=== PATIENT | male | born 1940 | race Caucasian/White ===

== ENCOUNTER 2018-11-17 21:41 | Inpatient (IN) | payer OTHER ==
[~2018-11-17] VITALS: Ht 167.6 cm; Wt 90.7 kg
[~2018-11-17 21:41] MED LIST: BACL10TA4 PO; DUTA0.5S2 PO; IBUP-2213 PO; PROSTATE MED PO; VALS320T2 PO
[2018-11-17 21:46] VITALS: BP 152/77
--- NOTE | 2018-11-17 21:53 | NUR ---
EKG PERFORMED IN TRIAGE ROOM
--- NOTE | 2018-11-17 22:07 | NUR ---
PT AMBULATED TO BED 5
--- NOTE | 2018-11-17 22:36 | NUR ---
Dr. Mcmahon evaluating patient at bedside.
[2018-11-17] MEDS ORDERED: ASPIRIN 325 MG TAB PO ONE (22:45)
--- NOTE | 2018-11-17 22:58 | NUR ---
X-Ray at bedside.
[2018-11-17 23:16] LABS: BASOPHILS % (AUTO) 0.3 % (0.0-2.0); EOSINOPHILS # (AUTO) 0.1 K/uL (0-0.4); EOSINOPHILS % (AUTO) 1.6 % (0.0-4.0); HEMATOCRIT 38.1 % (36-52); HEMOGLOBIN 12.6 g/dL (12.0-18.0); LYMPHOCYTES # (AUTO) 1.8 K/uL (2.0-11.5); LYMPHOCYTES % (AUTO) 35.3 % (20.5-51.1); MEAN CORPUSCULAR HEMOGLOBIN 29 pg (27-31); MEAN CORPUSCULAR HGB CONC 33 g/dL (33-37); MEAN CORPUSCULAR VOLUME 87.9 fL (80-94); MONOCYTES # (AUTO) 0.4 K/uL (0.8-1.0); MONOCYTES % (AUTO) 8.3 % (1.7-9.3); NEUTROPHILS # (AUTO) 2.8 K/uL (1.8-7.7); NEUTROPHILS % (AUTO) 54.5 % (42.2-75.2); PLATELET COUNT (AUTO) 158 K/uL (140-450); RED BLOOD CELL COUNT(AUTO) 4.34 MIL/uL (4.20-6.10); WHITE BLOOD COUNT (AUTO) 5.1 K/uL (4.8-10.8)
[2018-11-17 23:20] LABS: ANION GAP 7.3 (8-16); CARBON DIOXIDE 28.9 mmol/L (21-32); CHLORIDE 103 mmol/L (98-107); CREATININE 0.9 mg/dL (0.7-1.3); GLUCOSE 123 mg/dL (74-106); POTASSIUM 3.2 mmol/L (3.5-5.1); SODIUM SERUM 136 mmol/L (136-145); UREA NITROGEN, BLOOD 22 mg/dL (7-18)
[2018-11-17 23:26] LABS: ALBUMIN 3.7 g/dL (3.4-5.0); ASPARTATE AMINOTRANSFERASE 17 U/L (15-37); LIPASE 296 U/L (73-393); TOTAL BILIRUBIN 0.2 mg/dL (0.0-1.0)
[2018-11-17 23:35] LABS: CREATINE KINASE MB 0.8 ng/mL (0-3.6)
[2018-11-18] MEDS ORDERED: ACETAMINOPHEN 325 MG TAB PO PRN (00:05)
[2018-11-18] MEDS ORDERED: POTASSIUM CHLORIDE 10 MEQ TABER PO ONE (00:05)
[2018-11-18] MEDS ORDERED: ONDANSETRON 4 MG/2 ML VIAL IVP PRN (00:05)
[2018-11-18] MEDS ORDERED: HYDROcodone/APAP 7.5/325 MG 1 TAB PO PRN (00:05)
--- NOTE | 2018-11-18 00:30 | NUR ---
RECEIVED FROM ER PER DANO AWAKE AND ALERT AND ACCOMPANIED BY DAUGHTER AND . TELEMETRY MONITORING. CALL LIGHT WITH IN REACH. EXPLAINED USE OF CALL LIGHT . CARE PLANS FOR THE NIGHT DISCUSSED WITH THEM. IVF SITE TO RIGHT HAND #22. PATENT . SKIN INTACT. NO EDEMA. CTAB. TELEMETRY MONITORING. NSR 62 IN MONITOR. AFEBRILE. DX. CHEST PAIN AND R/O ACS.
--- NOTE | 2018-11-18 00:40 | NUR ---
Patient will be admitted to care of [facility]. Admited to TELE RM 106B VIA GURNEY WITH VSS. Belongings list completed. Report to TROY MEDINA.
[2018-11-18 00:43] VITALS: BP 157/74
--- NOTE | 2018-11-18 01:00 | NUR ---
PT. DAUGHTER CHINESE SPEAKING AND PT. INDIAN SPEAKING ONLY. USED Advanova VAULT KEEPER (BRICK) [phone] FOR ADMISSION.
[2018-11-18 01:16] LABS: FREE T4 (FREE THYROXINE) 1.04 ng/dL (0.76-1.46); MAGNESIUM 2.3 mg/dL (1.8-2.4); PHOSPHORUS 3.5 mg/dL (2.5-4.9); THYROID STIMULATING HORMONE 3.92 uIU/mL (0.34-3.74)
--- NOTE | 2018-11-18 01:45 | NUR ---
K-DUR 40 MEQS P.O. ORDERED BE RESIDENT MD AND WILL BE ADMINISTERED RT K LEVEL 3.2 .
[2018-11-18] MEDS: NACL 0.9% 1,000 ML IV SCH (01:56)
--- NOTE | 2018-11-18 02:09 | NUR ---
OFFERED PAIN RELIEVER FOR CHEST PAIN. "NO, NORMA " REQUESTED TO TURN OFF LIGHT . WENT TO SLEEP. TELEMETRY MONITORING.
[2018-11-18 02:36] LABS: PROTHROMBIN TIME 9.3 secs (10.8-13.4)
[2018-11-18 04:40] VITALS: BP 160/75
--- NOTE | 2018-11-18 04:44 | NUR ---
AWAKE AT THIS TIME. DENIES PAIN. BP 160/75. INFORMED RESIDENT MD. AWARE. "I WILL LOOK INTO " NO FURTHER ORDERS GIVEN AT THIS TIME. PT. WENT BACK TO SLEEP. AM PERSONAL HYGIENE RENDERED BY CNAS.
--- NOTE | 2018-11-18 06:30 | NUR ---
REPORT RECEIVED FROM NIGHT NURSE TROY. PT AWAKE A/O ABLE TO COMMUNICATE NEEDS. PT C/O CHEST PAIN, AWARE, STATES IT IS DECREASED FROM YESTERDAY. PT DENIES SOB, NUMBNESS, TINGLING, NO S/S OF ACUTE DISTRESS NOTE. PERSONAL ITEMS WITHIN REACH. CALL LIGHT AND SAFETY MEASURES, WILL CONTINUE TO MONITOR.
[2018-11-18] MEDS ORDERED: POTASSIUM CHLORIDE 10 MEQ TABER PO SCH (06:35)
--- NOTE | 2018-11-18 06:37 | NUR ---
PT. UA SPECIMEN SENT TO LAB FOR URINALYSIS. ABLE TO VERBALIZE NEEDS WELL IN MONGOLIAN. CALL LIGHT WITH IN REACH. NO SOB. DENIES PAIN.
[2018-11-18 06:58] LABS: BASOPHILS % (AUTO) 0.4 % (0.0-2.0); EOSINOPHILS # (AUTO) 0.1 K/uL (0-0.4); LYMPHOCYTES # (AUTO) 1.6 K/uL (2.0-11.5); LYMPHOCYTES % (AUTO) 30.5 % (20.5-51.1); MEAN CORPUSCULAR HEMOGLOBIN 29 pg (27-31); MEAN CORPUSCULAR HGB CONC 33 g/dL (33-37); MEAN CORPUSCULAR VOLUME 87.9 fL (80-94); MONOCYTES # (AUTO) 0.5 K/uL (0.8-1.0); MONOCYTES % (AUTO) 8.8 % (1.7-9.3); NEUTROPHILS # (AUTO) 3.1 K/uL (1.8-7.7); NEUTROPHILS % (AUTO) 58.3 % (42.2-75.2); PLATELET COUNT (AUTO) 153 K/uL (140-450); RED BLOOD CELL COUNT(AUTO) 4.44 MIL/uL (4.20-6.10); RED CELL DISTRIBUTION WIDTH 12.7 % (11.6-13.7); WHITE BLOOD COUNT (AUTO) 5.2 K/uL (4.8-10.8)
--- NOTE | 2018-11-18 07:00 | NUR ---
CHARGE NURSE CALLED RESIDENT SENIOR ORACLE DATABASE DEVELOPER MAYRA WITH ORDER TO HOLD K DUR P.O. ORDERED FOR 6 AM.
[2018-11-18 07:14] LABS: MAGNESIUM 2.1 mg/dL (1.8-2.4); PHOSPHORUS 3.1 mg/dL (2.5-4.9)
[2018-11-18 07:18] LABS: ANION GAP 12.7 (8-16); CARBON DIOXIDE 29.6 mmol/L (21-32); CHLORIDE 102 mmol/L (98-107); CREATININE 0.8 mg/dL (0.7-1.3); GLUCOSE 105 mg/dL (74-106); POTASSIUM 4.3 mmol/L (3.5-5.1); SODIUM SERUM 140 mmol/L (136-145); UREA NITROGEN, BLOOD 17 mg/dL (7-18)
[2018-11-18 08:00] VITALS: BP 160/78
--- NOTE | 2018-11-18 08:00 | NUR ---
DR GODWIN AT BEDSIDE TO ROUND ON PT. DISCUSSED CHEST PAIN AND PLAIN FOR CARDIOLOGY CONSULT. PT VERBALIZED UNDERSTANDING AND IS AGREEABLE TO PLAN. CALL LIGHT AND SAFETY MEASURES, WILL CONTINUE TO MONITOR.
--- NOTE | 2018-11-18 08:25 | NUR ---
PATIENT HAS BEEN SCREENED AND CATEGORIZED MODERATE NUTRITION RISK. PATIENT WILL BE SEEN WITHIN 3-5 DAYS OF ADMISSION. 11/20/18EDEN [address]ARDOS[address]
--- NOTE | 2018-11-18 08:55 | NUR ---
PT DAUGHTER AT BEDSIDE WITH HOME MEDS LIST PROVIDED TO DR DOWNEY.
[2018-11-18] MEDS ORDERED: PANTOPRAZOLE 40 MG TABEC PO SCH (09:00)
[2018-11-18] MEDS: DOCUSATE SODIUM 100 MG GELCAP PO SCH ×2 (09:20→21:47)
[2018-11-18] MEDS ORDERED: RANEX500 PO (10:40)
[2018-11-18] MEDS ORDERED: HYDR-3320 PO (10:40)
[2018-11-18] MEDS ORDERED: RANI150C PO (10:40)
[2018-11-18] MEDS ORDERED: SIMV20TA1 PO (10:40)
[2018-11-18] MEDS ORDERED: CARV25TA PO (10:40)
[2018-11-18] MEDS ORDERED: ISOS30TE68 PO (10:40)
--- NOTE | 2018-11-18 11:00 | NUR ---
PT ASLEEP EASILY AROUSABLE TO A/O ABLE TO COMMUNICATE NEEDS, FAMILY AT BEDSIDE. PT DENIES CHEST PAIN, DENIES SOB. NO S/S OF ACUTE DISTRESS NOTE. CALL LIGHT AND PERSONAL ITEMS WITHIN REACH. SAFETY MEASURES IN PLACE, WILL CONTINUE TO MONITOR.
[2018-11-18 12:00] VITALS: BP 152/71
--- NOTE | 2018-11-18 14:00 | NUR ---
PT AWAKE A/O, FAMILY AT BEDSIDE. PT DENIES CHEST PAIN, DENIES SOB. NO S/S OF ACUTE DISTRESS NOTE. CALL LIGHT AND PERSONAL ITEMS WITHIN REACH. SAFETY MEASURES IN PLACE, WILL CONTINUE TO MONITOR.
[2018-11-18 16:00] VITALS: BP 170/78
--- NOTE | 2018-11-18 17:00 | NUR ---
PT AWAKE A/O ABLE TO COMMUNICATE NEEDS, FAMILY AT BEDSIDE. PT DENIES CHEST PAIN, DENIES SOB. NO S/S OF ACUTE DISTRESS NOTE. CALL LIGHT AND PERSONAL ITEMS WITHIN REACH. SAFETY MEASURES IN PLACE, WILL CONTINUE TO MONITOR.
[2018-11-18] MEDS: CARVEDILOL 12.5 MG TAB PO SCH (17:20)
--- NOTE | 2018-11-18 19:00 | NUR ---
REPORT GIVEN TO NURSE CODY. PT SITTING UP IN BED FEEDING SELF DINNER. NO S/S OF ACUTE DISTRESS NOTED. CALL LIGHT AND PERSONAL ITEMS WITHIN REACH. SAFETY MEASURES IN PLACE, SEIZURE AND FALL PRECAUTIONS REMAIN IN PLACE. Addendum: 11/18/18 at 1937 by Jovanny Covarrubias RN REPORT GIVEN TO NURSE ARELLANO. PT REMAINS A/O ABLE TO COMMUNICATE NEEDS, FAMILY AT BEDSIDE. PT DENIES CHEST PAIN OR SOB. NO S/S OF ACUTE DISTRESS NOTED.CALL LIGHT AND PERSONAL ITEMS WITHIN REACH.
--- NOTE | 2018-11-18 19:15 | NUR ---
RECEIVED PT FROM CONCEPCIÓN RN PT GREEK SPEAKER AAOX4 AMBULATORY IV ON LEFT FA INFUSING WELL TKO ON TELEMETRY SR RELATIVE AT BED SIDE INITIAL ASSESSMENT DONE
[2018-11-18 20:00] VITALS: BP 146/75
--- NOTE | 2018-11-18 20:00 | NUR ---
DR SALAS IS HERE AND SEE THE PT
[2018-11-18] MEDS ORDERED: NON-FORMULARY ITEM (Ranitidine HCl (Ranitidine Hcl) 150 MG) PO SCH (21:00)
[2018-11-18] MEDS: SIMVASTATIN 20 MG TAB PO SCH (21:47)
[2018-11-18] MEDS: FAMOTIDINE 20 MG TAB PO SCH (21:47)
[2018-11-18] MEDS: RANOLAZINE 500 MG TER PO SCH (21:48)
--- NOTE | 2018-11-18 22:30 | NUR ---
PT SLEEPING WELL NOT DISTRESS NOTED ON TELMETRY SR
[2018-11-19] VITALS: BP 149/65
[2018-11-19] MEDS: NACL 0.9% 1,000 ML IV SCH (00:04)
--- NOTE | 2018-11-19 01:50 | NUR ---
PT REMAIN STABLE SLEEPING WELL NOT SIGN OF DISTRESS NOTED
[2018-11-19 04:00] VITALS: BP 156/78
--- NOTE | 2018-11-19 04:00 | NUR ---
SPONGE BATH GIVEN LINEN CHANGED PT DENIES ANY PAIN ON TELEMETRY SR
--- NOTE | 2018-11-19 06:37 | NUR ---
PT REMAIN STABLE NOT DISTRESS NOTED ON TELEMETRY SR PT WILL BE ENDORSED TO DAY SHIFT NURSE FOR CONTINUITY OF CARE
--- NOTE | 2018-11-19 07:20 | NUR ---
RECEIVED PRE REPORT FROM NUTRITION PARTNER NURSE AT BEDSIDE. PT IS AWAKE IN BED, NO S/S OF ACUTE DISTRESS NOTED. PT IS AUSTRIAN SPEAKING ONLY. PT ON ROOM AIR, SKIN INTACT. IV SITE ON THE LFA, 22 G, INFUSING NS 10 ML/HR TKO. CALL LIGHT WITHIN REACH, FALL PRECAUTIONS IN PLACE. WILL CONTINUE TO MONITOR.
[2018-11-19] MEDS ORDERED: POTASSIUM CHLORIDE 10 MEQ TABER PO SCH (07:35)
[2018-11-19 08:00] VITALS: BP 159/63
[2018-11-19 08:11] LABS: BASOPHILS % (AUTO) 0.3 % (0.0-2.0); EOSINOPHILS # (AUTO) 0.1 K/uL (0-0.4); EOSINOPHILS % (AUTO) 1.7 % (0.0-4.0); HEMATOCRIT 42.4 % (36-52); HEMOGLOBIN 14.2 g/dL (12.0-18.0); LYMPHOCYTES # (AUTO) 1.6 K/uL (2.0-11.5); LYMPHOCYTES % (AUTO) 30.2 % (20.5-51.1); MEAN CORPUSCULAR HEMOGLOBIN 30 pg (27-31); MEAN CORPUSCULAR HGB CONC 34 g/dL (33-37); MEAN CORPUSCULAR VOLUME 88.9 fL (80-94); MONOCYTES # (AUTO) 0.5 K/uL (0.8-1.0); MONOCYTES % (AUTO) 9.1 % (1.7-9.3); NEUTROPHILS # (AUTO) 3.1 K/uL (1.8-7.7); NEUTROPHILS % (AUTO) 58.7 % (42.2-75.2); PLATELET COUNT (AUTO) 162 K/uL (140-450); RED BLOOD CELL COUNT(AUTO) 4.77 MIL/uL (4.20-6.10); RED CELL DISTRIBUTION WIDTH 13.2 % (11.6-13.7); WHITE BLOOD COUNT (AUTO) 5.2 K/uL (4.8-10.8)
[2018-11-19] MEDS ORDERED: ISOSORBIDE MONONITRATE 30 MG PO SCH (09:00)
[2018-11-19] MEDS ORDERED: NON-FORMULARY ITEM (Losartan/Hydrochlorothiazide (Losartan-Hctz 100-25 mg Tab) 1 TAB) PO SCH (09:00)
[2018-11-19 09:04] LABS: CHOL/HDL RATIO 7.3 (1-4.5); MAGNESIUM 2.2 mg/dL (1.8-2.4); PHOSPHORUS 3.1 mg/dL (2.5-4.9)
[2018-11-19 09:05] LABS: ANION GAP 13.4 (8-16); CARBON DIOXIDE 27.5 mmol/L (21-32); CHLORIDE 103 mmol/L (98-107); GLUCOSE 102 mg/dL (74-106); POTASSIUM 3.9 mmol/L (3.5-5.1); SODIUM SERUM 140 mmol/L (136-145); UREA NITROGEN, BLOOD 18 mg/dL (7-18)
[2018-11-19] MEDS: RANOLAZINE 500 MG TER PO SCH ×2 (10:13→20:13)
[2018-11-19] MEDS: LOSARTAN 50 MG TAB PO SCH (10:14)
[2018-11-19] MEDS: DOCUSATE SODIUM 100 MG GELCAP PO SCH ×2 (10:14→20:12)
[2018-11-19] MEDS: ISOSORBIDE MONONITRATE 30 MG TABER PO SCH (10:14)
[2018-11-19] MEDS: FAMOTIDINE 20 MG TAB PO SCH ×2 (10:15→20:13)
[2018-11-19] MEDS: CARVEDILOL 12.5 MG TAB PO SCH ×2 (10:15→17:00)
[2018-11-19] MEDS: HYDROCHLOROTHIAZIDE 25 MG TAB PO SCH (10:15)
--- NOTE | 2018-11-19 11:25 | NUR ---
PT ACCIDENTALLY PULLED OUT HIS IV. WILL ATTEMPT TO START A NEW ONE AFTER HIS STRESS TEST.
--- NOTE | 2018-11-19 11:30 | NUR ---
PTT OFF THE FLOOR WITH CARDIO FOR STRESS TEST AT THIS TIME.
[2018-11-19 13:00] VITALS: BP 100/53
--- NOTE | 2018-11-19 13:44 | NUR ---
NEW IV INSERTED. L HAND 22 GAUGE. PATENT AND INTACT.
--- NOTE | 2018-11-19 14:00 | NUR ---
PER DR DOWNEY, PT DOES NOT NEED ANY IV FLUIDS, AND HE IS NOT GETTING ANY IV ABX. NEW IV SITE IS SALINE LOCKED.
[2018-11-19 16:00] VITALS: BP 104/50
--- NOTE | 2018-11-19 19:25 | NUR ---
PT ENDORSED TO CONGRESSIONAL DISTRICT AIDE IN STABLE CONDITION.
--- NOTE | 2018-11-19 19:26 | NUR ---
RECEIVED BEDSIDE REPORT FROM CAROL RODRIGUEZ. PT IS AAO X 4. ON ROOM AIR. RESPIRATIONS ARE EQUAL AND UNLABORED. PT DENIES ANY PAIN. FAMILY IS AT BEDSIDE. SKIN INTACT. IV ON L HAND 22G SALINE LOCK. PT IS MALTESE SPEAKING ONLY. PLAN OF CARE DISCUSSED WITH PT AND FAMILY. ALL SAFETY MEASURES IN PLACE. CALL LIGHT WITHIN REACH.
[2018-11-19 20:07] VITALS: BP 123/63
[2018-11-19] MEDS: SIMVASTATIN 20 MG TAB PO SCH (20:12)
--- NOTE | 2018-11-19 20:12 | NUR ---
VS ARE WITHIN NORMAL LIMITS. DUE MEDICATIONS GIVEN. PT TOLERATED WELL. CALL LIGHT IS WITHIN REACH. WILL CONTINUE TO MONITOR.
[2018-11-20] VITALS: BP 131/66
--- NOTE | 2018-11-20 | NUR ---
VS ARE WITHIN NORMAL LIMITS. ALL NEEDS MET AT THIS TIME. CALL LIGHT WITHIN REACH.
--- NOTE | 2018-11-20 02:10 | NUR ---
PT SLEEPING COMFORTABLY IN BED. NO S/S OF DISTRESS. CALL LIGHT WITHIN REACH.
[2018-11-20 04:00] VITALS: BP 115/67
[2018-11-20 06:34] LABS: BASOPHILS % (AUTO) 0.4 % (0.0-2.0); EOSINOPHILS # (AUTO) 0.1 K/uL (0-0.4); EOSINOPHILS % (AUTO) 1.8 % (0.0-4.0); HEMOGLOBIN 13.1 g/dL (12.0-18.0); LYMPHOCYTES # (AUTO) 1.8 K/uL (2.0-11.5); LYMPHOCYTES % (AUTO) 38.1 % (20.5-51.1); MEAN CORPUSCULAR HEMOGLOBIN 30 pg (27-31); MEAN CORPUSCULAR HGB CONC 34 g/dL (33-37); MEAN CORPUSCULAR VOLUME 88.2 fL (80-94); MONOCYTES # (AUTO) 0.4 K/uL (0.8-1.0); MONOCYTES % (AUTO) 8.6 % (1.7-9.3); NEUTROPHILS # (AUTO) 2.5 K/uL (1.8-7.7); NEUTROPHILS % (AUTO) 51.1 % (42.2-75.2); PLATELET COUNT (AUTO) 144 K/uL (140-450); RED BLOOD CELL COUNT(AUTO) 4.42 MIL/uL (4.20-6.10); RED CELL DISTRIBUTION WIDTH 13.1 % (11.6-13.7); WHITE BLOOD COUNT (AUTO) 4.8 K/uL (4.8-10.8)
[2018-11-20 07:07] LABS: ANION GAP 12.3 (8-16); CARBON DIOXIDE 27.5 mmol/L (21-32); CHLORIDE 103 mmol/L (98-107); GLUCOSE 104 mg/dL (74-106); POTASSIUM 3.8 mmol/L (3.5-5.1); SODIUM SERUM 139 mmol/L (136-145); UREA NITROGEN, BLOOD 18 mg/dL (7-18)
--- NOTE | 2018-11-20 07:15 | NUR ---
GAVE BEDSIDE REPORT TO CAROL SIERRA. PT ENDORSED IN STABLE CONDITION.
[2018-11-20 07:16] LABS: MAGNESIUM 2.1 mg/dL (1.8-2.4); PHOSPHORUS 3.5 mg/dL (2.5-4.9)
--- NOTE | 2018-11-20 07:30 | NUR ---
RECEIVED PT AAOX4. NO SOB NOTED. NO C/O PAIN AT THIS TIME. IV TO LT HAND PATENT AND INTACT. CHEST, DIMINISHED AIR ENTRY TO THE BASES, OTHERWISE CLEAR. ABDOMEN SOFT, BOWEL SOUNDS PRESENT. INSTRUCTED PT TO CALL FOR ASSISTANCE, CALL LIGHT WITHIN REACH, PT VERBALIZED UNDERSTANDING.
[2018-11-20 08:00] VITALS: BP 131/60
[2018-11-20] MEDS: RANOLAZINE 500 MG TER PO SCH (09:00)
--- NOTE | 2018-11-20 09:30 | NUR ---
PT CONSUMED ALMOST 100% ON BREAKFAST SERVED, FOOD TOLERATED WELL.
[2018-11-20] MEDS: HYDROCHLOROTHIAZIDE 25 MG TAB PO SCH (09:58)
[2018-11-20] MEDS: LOSARTAN 50 MG TAB PO SCH (09:58)
[2018-11-20] MEDS: CARVEDILOL 12.5 MG TAB PO SCH (09:59)
[2018-11-20] MEDS: ISOSORBIDE MONONITRATE 30 MG TABER PO SCH (09:59)
[2018-11-20] MEDS: DOCUSATE SODIUM 100 MG GELCAP PO SCH (09:59)
[2018-11-20] MEDS: FAMOTIDINE 20 MG TAB PO SCH (09:59)
--- NOTE | 2018-11-20 11:30 | NUR ---
PT SEEN BY DR. Lynnette SALAS AT THE BEDSIDE.
[2018-11-20 12:00] VITALS: BP 123/75
--- NOTE | 2018-11-20 12:45 | NUR ---
DISCHARGE INSTRUCTIONS GIVEN TO PT AND FAMILY ON A DOWN TIME PAPER. DAUGHTER MICHAEL AT THE BEDSIDE WHO SPEAKS LUXEMBOURGER WELL, BOTH PT AND FAMILY VERBALIZED UNDERSTANDING ON THE NEED TO FOLLOW UP WITH PCP AND SERVICE AGENT WITHIN 7 DAYS. ARM BANDS AND IV REMOVED, CANNULA TIP INTACT.
--- NOTE | 2018-11-20 13:00 | NUR ---
PT ESCORTED TO THE PARKING LOT IN STABLE CONDITION, AMBULATORY. NO SOB NOTED. NO COMPLAINTS MADE. PT IS D/C HOME WITH FAMILY.
== END 2018-11-20 13:00 | disposition home or self-care (01) | DRG 206 ==
LOC: MED 21:41 → MTU 11-18 00:09
PROVIDERS: ADMIT General Practice; ATTEND General Practice
DX: M94.0 Chondrocostal junction syndrome [Tietze] (principal); K21.9 Gastro-esophageal reflux disease without esophagitis; E87.6 Hypokalemia; E66.9 Obesity, unspecified; E78.5 Hyperlipidemia, unspecified; E03.9 Hypothyroidism, unspecified; N40.0 Benign prostatic hyperplasia without lower urinary tract symptoms; I10 Essential (primary) hypertension; Z68.32 Body mass index [BMI] 32.0-32.9, adult; Z71.3 Dietary counseling and surveillance; Z79.899 Other long term (current) drug therapy; Z98.49 Cataract extraction status, unspecified eye; Z82.79 Family history of other congenital malformations, deformations and chromosomal abnormalities; Z82.49 Family history of ischemic heart disease and other diseases of the circulatory system
CPT/HCPCS: 36415; 71045; 80048; 80053; 82150; 82550; 82553; 83036; 83690; 83735; 83880; 84100; 84439; 84443; 84484; 85025; 85610; 85730; 87081; 93005; 93017; 99285; J1644; J7030

== ENCOUNTER 2019-06-07 18:36 | Emergency (ER) | payer OTHER ==
[~2019-06-07] VITALS: Ht 165.1 cm; Wt 90.7 kg
[2019-06-07 18:36] VITALS: BP 174/89
[~2019-06-07 18:36] MED LIST changes: -BACL10TA4 PO; +CARV25TA PO; -DUTA0.5S2 PO; +HYDR-3320 PO; +ISOS30TE68 PO; -PROSTATE MED PO; +RANEX500 PO; +RANI150C PO; +SIMV20TA1 PO; -VALS320T2 PO
--- NOTE | 2019-06-07 18:39 | NUR ---
PT BIBA TO BED 07.
[2019-06-07] MEDS ORDERED: PANTOPRAZOLE 40 MG INJ VIAL IVP ONE (18:50)
[2019-06-07] MEDS ORDERED: MORPHINE SULFATE 4 MG/ML SYR IVP ONE (18:50)
[2019-06-07] MEDS ORDERED: NACL 0.9% 1,000 ML IV ONE (18:50)
--- NOTE | 2019-06-07 18:51 | NUR ---
CXR AT BEDSIDE
--- NOTE | 2019-06-07 18:59 | NUR ---
ADMITS TO BINGE DRINKING TODAY, STATES HAD ABOUT 8 BEERS TODAY FOLLOWED BY MIDSTERNAL/EPIGASTRIC PAIN CONSTANT PAIN DENIES N/V
--- NOTE | 2019-06-07 18:59 | NUR ---
3L NC 02 PLACED ON PT
[2019-06-07 19:12] LABS: BASOPHILS % (AUTO) 0.7 % (0.0-2.0); HEMATOCRIT 41.2 % (36-52); HEMOGLOBIN 13.9 g/dL (12.0-18.0); LYMPHOCYTES # (AUTO) 0.9 K/uL (2.0-11.5); LYMPHOCYTES % (AUTO) 12.8 % (20.5-51.1); MEAN CORPUSCULAR HEMOGLOBIN 30 pg (27-31); MEAN CORPUSCULAR HGB CONC 34 g/dL (33-37); MEAN CORPUSCULAR VOLUME 87.8 fL (80-94); MONOCYTES # (AUTO) 0.2 K/uL (0.8-1.0); MONOCYTES % (AUTO) 2.8 % (1.7-9.3); NEUTROPHILS # (AUTO) 5.9 K/uL (1.8-7.7); NEUTROPHILS % (AUTO) 83.7 % (42.2-75.2); PLATELET COUNT (AUTO) 170 K/uL (140-450); RED BLOOD CELL COUNT(AUTO) 4.69 MIL/uL (4.20-6.10); RED CELL DISTRIBUTION WIDTH 13.8 % (11.6-13.7)
[2019-06-07 19:29] LABS: ANION GAP 19.2 (8-16); CARBON DIOXIDE 22.4 mmol/L (21-32); CHLORIDE 103 mmol/L (98-107); CREATININE 0.9 mg/dL (0.7-1.3); GLUCOSE 112 mg/dL (74-106); POTASSIUM 3.6 mmol/L (3.5-5.1); SODIUM SERUM 141 mmol/L (136-145); UREA NITROGEN, BLOOD 18 mg/dL (7-18)
[2019-06-07 19:35] LABS: ALBUMIN 4.4 g/dL (3.4-5.0); ASPARTATE AMINOTRANSFERASE 24 U/L (15-37); LIPASE 211 U/L (73-393); TOTAL BILIRUBIN 0.2 mg/dL (0.0-1.0)
--- NOTE | 2019-06-07 19:53 | NUR ---
Dr. Mendes evaluating patient at bedside.
--- NOTE | 2019-06-07 20:05 | NUR ---
PT LAYING IN BED, FAMILY MEMBER AT BEDSIDE. VS NOTED, RR EVEN AND UNLABORED. PT REPORTS IMPROVEMENT IN PAIN RELIEF, 0/10 AT THIS TIME. ALL NEEDS MET.
[2019-06-07 20:41] VITALS: BP 141/67
--- NOTE | 2019-06-07 20:41 | NUR ---
Patient discharged with v/s stable. Written and verbal after care instructions given and explained. Patient alert, oriented and verbalized understanding of instructions. Ambulatory with steady gait. All questions addressed prior to discharge. ID band removed. Patient advised to follow up with PMD. Rx of ZOFRAN, MOTRIN given. Patient educated on indication of medication including possible reaction and side effects. Opportunity to ask questions provided and answered.
== END 2019-06-07 20:41 | disposition home or self-care (01) ==
LOC: MED 18:36
DX: R07.9 Chest pain, unspecified (principal); R11.2 Nausea with vomiting, unspecified; R10.9 Unspecified abdominal pain; I20.9 Angina pectoris, unspecified; K21.9 Gastro-esophageal reflux disease without esophagitis; I10 Essential (primary) hypertension; Z79.899 Other long term (current) drug therapy
CPT/HCPCS: 36415; 71045; 80053; 83690; 84484; 85025; 93005; 96361; 96374; 96375; 99284; C9113; J2270; J7030; Q0092

== ENCOUNTER 2021-06-04 13:51 | Emergency (ER) | payer OTHER ==
[~2021-06-04] VITALS: Ht 170.2 cm; Wt 96.2 kg
[2021-06-04 14:01] VITALS: BP 142/67
--- NOTE | 2021-06-04 14:05 | NUR ---
PT SENT TO LOBBY TO WAIT FOR AVAILABLE BED OR MSE.
[2021-06-04] MEDS ORDERED: HYDROcodone/APAP 5/325 MG 1 TAB TAB PO ONE (14:30)
[2021-06-04 14:37] LABS: BASOPHILS # (AUTO) 0.1 K/uL (0.00-0.22); BASOPHILS % (AUTO) 0.6 % (0.0-2.0); EOSINOPHILS % (AUTO) 0.2 % (0.0-4.0); HEMATOCRIT 35.9 % (36-52); HEMOGLOBIN 12.1 g/dL (12.0-18.0); LYMPHOCYTES # (AUTO) 1.4 K/uL (2.0-11.5); LYMPHOCYTES % (AUTO) 12.6 % (20.5-51.1); MEAN CORPUSCULAR HEMOGLOBIN 30 pg (27-31); MEAN CORPUSCULAR HGB CONC 34 g/dL (33-37); MEAN CORPUSCULAR VOLUME 88.2 fL (80-94); MONOCYTES # (AUTO) 1.5 K/uL (0.8-1.0); MONOCYTES % (AUTO) 13.5 % (1.7-9.3); NEUTROPHILS # (AUTO) 7.9 K/uL (1.8-7.7); NEUTROPHILS % (AUTO) 73.1 % (42.2-75.2); PLATELET COUNT (AUTO) 165 K/uL (140-450); RED BLOOD CELL COUNT(AUTO) 4.07 MIL/uL (4.20-6.10); RED CELL DISTRIBUTION WIDTH 13.3 % (11.6-13.7); WHITE BLOOD COUNT (AUTO) 10.8 K/uL (4.8-10.8)
[2021-06-04 14:37] LABS: APPEARANCE,URINE CLEAR (CLEAR); BILIRUBIN,URINE NEGATIVE (NEGATIVE); BLOOD, URINE NEGATIVE (NEGATIVE); COLOR,URINE YELLOW (YELLOW); LEUKOCYTE ESTERASE ,URINE NEGATIVE (NEGATIVE); NITRITE, URINE NEGATIVE (NEGATIVE); PH,URINE 5.5 (5.0-9.0); UGLUCOSE NEGATIVE (NEGATIVE)
[2021-06-04 14:53] LABS: ALBUMIN 3.9 g/dL (3.4-5.0); ANION GAP 11.4 (8-16); ASPARTATE AMINOTRANSFERASE 14 U/L (15-37); CARBON DIOXIDE 28.7 mmol/L (21-32); CHLORIDE 100 mmol/L (98-107); CREATININE 1.3 mg/dL (0.6-1.3); GLUCOSE 112 mg/dL (74-106); POTASSIUM 4.1 mmol/L (3.5-5.1); SODIUM SERUM 136 mmol/L (136-145); TOTAL BILIRUBIN 0.5 mg/dL (0.0-1.0); UREA NITROGEN, BLOOD 30 mg/dL (7-18)
--- NOTE | 2021-06-04 15:01 | NUR ---
PATIENT AMBULATED TO BED 04 WITH STEADY/EVEN GAIT.
--- NOTE | 2021-06-04 15:05 | NUR ---
Rich langford swab handed to CPT Pat at ER bedside.
--- NOTE | 2021-06-04 15:05 | NUR ---
80 y/o M BIB self from home with c/c L flank pain x 4 days. Patient A&Ox4, ambulatory, reports 10/10, sharp/intermittent, radiating from back to hip. Patient also reports slight constipation that triggers left flank pain. Patient states Tylenol 500mg at 10AM without relief. Denies nausea, vomiting, diarrhea, chest pain, dysuria, frequency, fever/chills. UA collected. Last BM: yesterday normal; bowel sounds normoactive x LLQ/LUQ quadrants. VSS; respirations even/unlabored. Bed locked in lowest position, side rails x 1, call light in reach. PMH: HTN, hyperlipidemia, heart disease, constipation Meds: Nifedipine, carvedilol, celecoxib, simvastatin, ASA 81, hydrochlorothiazide, ranolazine, dulateride, Tylenol, isosorbid NKA
--- NOTE | 2021-06-04 15:15 | NUR ---
Dr. Momin is evaluating patient at bedside with Saba
--- NOTE | 2021-06-04 15:38 | NUR ---
Patient reports positive relief; pain 5/10 at this time. Denies nausea. All needs met.
[2021-06-04] MEDS ORDERED: ACET-10509 PO (16:08)
[2021-06-04] MEDS ORDERED: LID5T TP (16:08)
[2021-06-04 16:30] VITALS: BP 135/60
--- NOTE | 2021-06-04 16:30 | NUR ---
Patient discharged with v/s stable. Written and verbal after care instructions given and explained. Patient alert, oriented and verbalized understanding of instructions. Ambulatory with steady gait. All questions addressed prior to discharge. ID band removed. Patient advised to follow up with PMD. Rx of Lidocaine patch and Tylenol given. Patient educated on indication of medication including possible reaction and side effects. Opportunity to ask questions provided and answered.
== END 2021-06-04 16:30 | disposition home or self-care (01) ==
LOC: MED 13:51
DX: R10.9 Unspecified abdominal pain (principal); Z20.822 Contact with and (suspected) exposure to COVID-19; R20.0 Anesthesia of skin; K21.9 Gastro-esophageal reflux disease without esophagitis; I10 Essential (primary) hypertension; Z79.899 Other long term (current) drug therapy
CPT/HCPCS: 36415; 80053; 81002; 81003; 83605; 85025; 87040; 99284

== ENCOUNTER 2022-01-08 21:50 | Inpatient (IN) | payer OTHER ==
[~2022-01-08] VITALS: Ht 165.1 cm; Wt 96.6 kg
[~2022-01-08 21:50] MED LIST changes: +ACET-10509 PO; +LID5T TP
[2022-01-08 21:57] VITALS: BP 206/85
--- NOTE | 2022-01-08 22:02 | NUR ---
PT TO BED 9
--- NOTE | 2022-01-08 22:08 | NUR ---
81 YO/M BIB SON IN LAW W C/O MIDSTERNAL CHEST PAIN 10/10 PRESSURE LIKE CONSTANT NON-RAD X1 HOUR STARTING WHILE RESTING IN BED, + SOB. PT DENIES ANY N/V/D, OR URINE PROBLEMS. PT A0X4, GCS 15, +2 RADIAL PULSES, SKIN PINK/WARM/DRY, AMBULATORY W STEADY GAIT. PT HYPERTENSIVE. PT LAYING IN BED LOCKED IN LOWEST POSITION W X2 SIDERAILS UP FOR PT SAFETY. PT GRUNTING AND COMPLAINING OF CHEST PAIN. ERMD AWARE OF PT STATUS. PT CONNECTED TO MONITOR. WILL CONTINUE TO MONITOR. PMH: HTN, HIGH CHOLESTEROL ALLERGIES: DENIES
[2022-01-08] MEDS ORDERED: ONDANSETRON 4 MG/2 ML VIAL IVP ONE (22:10)
[2022-01-08] MEDS ORDERED: ENOXAPARIN 100 MG/ML SYR SUBQ ONE (22:10)
[2022-01-08] MEDS ORDERED: NITROGLYCERIN 2% 1 GM PKT TP ONE (22:10)
[2022-01-08] MEDS ORDERED: MORPHINE SULFATE 4 MG/ML SYR IVP ONE (22:10)
[2022-01-08] MEDS ORDERED: ASPIRIN 325 MG TAB PO ONE (22:10)
--- NOTE | 2022-01-08 22:20 | NUR ---
XRAY AT BEDSIDE
[2022-01-08 22:28] LABS: BASOPHILS # (AUTO) 0.1 K/uL (0.00-0.22); BASOPHILS % (AUTO) 1.1 % (0.0-2.0); EOSINOPHILS % (AUTO) 0.9 % (0.0-4.0); HEMATOCRIT 39.6 % (36-52); HEMOGLOBIN 13.6 g/dL (12.0-18.0); LYMPHOCYTES # (AUTO) 2.7 K/uL (2.0-11.5); MEAN CORPUSCULAR HEMOGLOBIN 30 pg (27-31); MEAN CORPUSCULAR HGB CONC 35 g/dL (33-37); MEAN CORPUSCULAR VOLUME 86.4 fL (80-94); MONOCYTES # (AUTO) 0.6 K/uL (0.8-1.0); MONOCYTES % (AUTO) 10.2 % (1.7-9.3); NEUTROPHILS # (AUTO) 2.2 K/uL (1.8-7.7); NEUTROPHILS % (AUTO) 38.8 % (42.2-75.2); PLATELET COUNT (AUTO) 189 K/uL (140-450); RED BLOOD CELL COUNT(AUTO) 4.58 MIL/uL (4.20-6.10); RED CELL DISTRIBUTION WIDTH 13.9 % (11.6-13.7); WHITE BLOOD COUNT (AUTO) 5.6 K/uL (4.8-10.8)
[2022-01-08] MEDS ORDERED: hydrALAZINE 20 MG/ML VIAL IVP ONE (22:50)
[2022-01-08] MEDS ORDERED: ENALAPRILAT 2.5 MG/2 ML VIAL IVP ONE (22:50)
[2022-01-08 22:54] LABS: ANION GAP 11.7 (8-16); ASPARTATE AMINOTRANSFERASE 97 U/L (15-37); CARBON DIOXIDE 27.4 mmol/L (21-32); CHLORIDE 102 mmol/L (98-107); CREATININE 0.9 mg/dL (0.6-1.3); GLUCOSE 110 mg/dL (74-106); SODIUM SERUM 135 mmol/L (136-145); TOTAL BILIRUBIN 0.4 mg/dL (0.0-1.0); UREA NITROGEN, BLOOD 18 mg/dL (7-18)
--- NOTE | 2022-01-08 23:05 | NUR ---
PT SON IN [facility] CONTACT # [phone].
--- NOTE | 2022-01-08 23:05 | NUR ---
PT REPORTS FEELING BETTER AT THIS TIME, DENIES SOB. REPORTS CHEST PAIN IMPROVEMENT TP 01/01.
[2022-01-08 23:07] LABS: POTASSIUM 6.1 mmol/L (3.5-5.1)
--- NOTE | 2022-01-08 23:30 | NUR ---
PT BP 150/70, PER ERMD OK TO NON-ADMIN VASOTEC.
[2022-01-08] MEDS ORDERED: HYDROcodone/APAP 5/325 MG 1 TAB TAB PO PRN (23:35)
[2022-01-08] MEDS ORDERED: POTASSIUM CHLORIDE 10 MEQ TABER PO PRN (23:35)
[2022-01-08] MEDS ORDERED: HYDROmorphone 1 MG/ML AMP IVP PRN (23:35)
[2022-01-08] MEDS ORDERED: ACETAMINOPHEN 325 MG TAB PO PRN (23:35)
[2022-01-08] MEDS ORDERED: MORPHINE SULFATE 4 MG/ML SYR IVP PRN (23:35)
[2022-01-08] MEDS ORDERED: ONDANSETRON 4 MG/2 ML VIAL IVP PRN (23:35)
[2022-01-08] MEDS ORDERED: hydrALAZINE 20 MG/ML VIAL IM PRN (23:40)
--- NOTE | 2022-01-09 00:05 | NUR ---
PT APPEARS TO BE RESTING W EYES CLOSED BREATHING EVEN AND UNLABORED. WILL CONTINUE TO MONITOR.
[2022-01-09] MEDS: NACL 0.9% 1,000 ML IV SCH ×2 (00:22→12:05)
--- NOTE | 2022-01-09 00:24 | NUR ---
PT REPORTS CHEST PAIN HAS RESOLVED. NO NEW SYMPTOMS.
--- NOTE | 2022-01-09 01:12 | NUR ---
PT REPORTS HE DOES NOT KNOW THE NAMES OF THE MEDICATIONS HE TAKES AT HOME. PT UNSURE WHICH ONES IN CURRENT MED REC FILE HE TAKES.
--- NOTE | 2022-01-09 02:43 | NUR ---
NO CHANGE IN PT STATUS. PT APPEARS TO BE RESTING W EYES CLOSED BREATHING EVEN AND UNLABORED. VSS. WILL CONTINUE TO MONITOR.
--- NOTE | 2022-01-09 04:16 | NUR ---
PROVIDED PT W BLANKET. PT DENIES ANY CHEST PAIN OR OTHER SYMPTOMS. VSS.
--- NOTE | 2022-01-09 04:40 | NUR ---
PROVIDED PT SON IN LAW NAIF W A STATUS UPDATE.
--- NOTE | 2022-01-09 06:10 | NUR ---
NO CHANGE IN PT STATUS. PT APPEARS TO BE RESTING W EYES CLOSED BREATHING EVEN AND UNLABORED. VSS. WILL CONTINUE TO MONITOR.
[2022-01-09 06:28] LABS: ALBUMIN 3.6 g/dL (3.4-5.0); ANION GAP 11.6 (8-16); ASPARTATE AMINOTRANSFERASE 29 U/L (15-37); CARBON DIOXIDE 26.5 mmol/L (21-32); CHLORIDE 104 mmol/L (98-107); CREATININE 0.9 mg/dL (0.6-1.3); GLUCOSE 120 mg/dL (74-106); MAGNESIUM 2.4 mg/dL (1.8-2.4); POTASSIUM 4.1 mmol/L (3.5-5.1); SODIUM SERUM 138 mmol/L (136-145); TOTAL BILIRUBIN 0.2 mg/dL (0.0-1.0); UREA NITROGEN, BLOOD 18 mg/dL (7-18)
--- NOTE | 2022-01-09 07:11 | NUR ---
Pt report given to CAROL EDMOND. Transfer of care at this time.
--- NOTE | 2022-01-09 07:30 | NUR ---
received pt in [facility] aox4. denies pain or discomfort. nsr on monitor. iv intact and patent. nad. safety maintained.
--- NOTE | 2022-01-09 07:57 | NUR ---
PT TRANSFERRED TO [facility] [[email or web address]] FROM ED. RECEIVED BEDSIDE REPORT FROM ED NURSE. NO S/S OF DISTRESS. CALL LIGHT IN REACH. ALL SAFETY MEASURES IN PLACE
[2022-01-09] MEDS: carvediloL 6.25 MG TAB PO SCH ×2 (10:02→21:38)
[2022-01-09] MEDS: BLOOD GLUCOSE MONITORING 1 DEV DEV FS SCH ×3 (11:30→21:27)
[2022-01-09] MEDS ORDERED: DEXTROSE 50% 50 ML SYR IVP PRN (11:30)
[2022-01-09] MEDS ORDERED: INSULIN LISPRO SLIDING SCALE 100 UNITS/ML VIAL SUBQ PRN (11:30)
[2022-01-09 12:00] VITALS: BP 131/69
--- NOTE | 2022-01-09 12:00 | NUR ---
PT FAMILY CALLED, SON-IN-LAW NAIF. PT WAS ASKED IF HE WANTED STAFF TO RELEASE MEDICAL INFORMATION TO FAMILY. PT REFUSED CONSENT AND ROOM PHONE TO SPEAK WITH FAMILY. CALL LIGHT IN REACH. ALL SAFETY MEASURES IN PLACE
--- NOTE | 2022-01-09 12:52 | NUR ---
PATIENT HAS BEEN SCREENED AND CATEGORIZED MODERATE NUTRITION RISK. PATIENT WILL BE SEEN WITHIN 3-5 DAYS OF ADMISSION. JOHANNY MCQUE[address] RD
[2022-01-09 16:00] VITALS: BP 151/71
--- NOTE | 2022-01-09 16:00 | NUR ---
PT LYING ON HIS BED, BREATHING UNLABORED. DENIES PAIN. WILL CONTINUE TO MONITOR.
[2022-01-09] MEDS ORDERED: LOVENOX 1MG/KG Q12H SUBQ SCH (18:10)
--- NOTE | 2022-01-09 18:15 | NUR ---
PT SON-IN-LAW(NAIF) WAS AT BEDSIDE, RELAYED PT'S CONDITION. PT IS TABLE AT THIS TIME.
[2022-01-09] MEDS: ENOXAPARIN 100 MG/ML SYR SUBQ SCH (19:05)
--- NOTE | 2022-01-09 19:30 | NUR ---
GAVE REPORT TO EDGE STAINER NURSE, PT IS STABLE. PLAN OF CARE DISCUSSED.
--- NOTE | 2022-01-09 19:31 | NUR ---
RECEIVED ENDORSEMENT FROM CAROL STOVER FOR CONTINUITY OF CARE. PATIENT IS AWAKE AND STABLE. A&OX4 BERMUDIAN SPEAKING ONLY. VERBALLY RESPONSIVE AND ABLE TO COMMUNICATE NEEDS. DENIES PAIN. ON ROOM AIR WITH NO APPARENT S/SX OF ACUTE DISTRESS. RESPIRATIONS EVEN AND UNLABORED. PATIENT IS AMBULATORY. CONTINENT OF VOID AND URINE. SKIN IS INTACT. IV SITE IS PATENT/INTACT WITH NS INFUSING AT 80 ML/HR. PLAN OF CARE AND WHITE COMMUNICATION BOARD UPDATED. ALL SAFETY MEASURES IN PLACE. CALL LIGHT WITHIN REACH. BED IN LOW/LOCKED POSITION. WILL CONTINUE TO MONITOR.
[2022-01-09 20:00] VITALS: BP 144/74
--- NOTE | 2022-01-09 20:00 | NUR ---
Patient's Plan of Care was discussed and reviewed with DES CARDONA
--- NOTE | 2022-01-09 21:15 | NUR ---
ADMINISTERED SCHEDULED PO MEDICATIONS PER MD ORDER. TOLERATED WELL. DENIES PAIN. RESPIRATIONS EVEN AND UNLABORED WITH NO APPARENT S/SX OF ACUTE DISTRESS. WHITE COMMUNICATION BOARD UPDATED. ALL SAFETY MEASURES IN PLACE. BED IN LOW/LOCKED POSITION. CALL LIGHT WITHIN REACH. WILL CONTINUE TO MONITOR.
[2022-01-09] MEDS: lisinopriL 10 MG TAB PO SCH (21:38)
--- NOTE | 2022-01-09 23:20 | NUR ---
PATIENT IS STABLE AND ASLEEP. CHEST RISING AND FALLING EVENLY. RESPIRATIONS EVEN AND UNLABORED WITH NO APPARENT S/SX OF ACUTE DISTRESS. WHITE COMMUNICATION BOARD UPDATED. ALL SAFETY MEASURES IN PLACE. CALL LIGHT WITHIN REACH. WILL CONTINUE TO MONITOR.
[2022-01-10] VITALS: BP 135/80
[2022-01-10] MEDS: NACL 0.9% 1,000 ML IV SCH ×3 (00:35→13:05)
--- NOTE | 2022-01-10 01:15 | NUR ---
CHECKED PATIENT. PATIENT IS STABLE AND ASLEEP. CHEST IS RISING AND FALLING EVENLY WITH NO APPARENT S/SX OF ACUTE DISTRESS. WHITE COMMUNICATION BOARD UPDATED. ALL SAFETY MEASURES IN PLACE. CALL LIGHT WITHIN REACH. WILL CONTINUE TO MONITOR.
--- NOTE | 2022-01-10 03:15 | NUR ---
ROUNDED ON PATIENT. PATIENT IS STABLE AND ASLEEP. CHEST IS RISING AND FALLING EVENLY WITH NO APPARENT S/SX OF ACUTE DISTRESS. WHITE COMMUNICATION BOARD UPDATED. ALL SAFETY MEASURES IN PLACE. CALL LIGHT WITHIN REACH. WILL CONTINUE TO MONITOR.
[2022-01-10 04:00] VITALS: BP 150/87
--- NOTE | 2022-01-10 05:15 | NUR ---
CHECKED PATIENT. PATIENT IS STABLE AND ASLEEP. CHEST IS RISING AND FALLING EVENLY WITH NO APPARENT S/SX OF ACUTE DISTRESS. ALL NEEDS MET. WHITE COMMUNICATION BOARD UPDATED. ALL SAFETY MEASURES IN PLACE. CALL LIGHT WITHIN REACH. WILL CONTINUE TO MONITOR.
[2022-01-10 06:36] LABS: ALBUMIN 3.3 g/dL (3.4-5.0); ASPARTATE AMINOTRANSFERASE 20 U/L (15-37); CARBON DIOXIDE 26.9 mmol/L (21-32); CHLORIDE 105 mmol/L (98-107); CREATININE 0.9 mg/dL (0.6-1.3); GLUCOSE 105 mg/dL (74-106); MAGNESIUM 2.3 mg/dL (1.8-2.4); POTASSIUM 3.9 mmol/L (3.5-5.1); SODIUM SERUM 139 mmol/L (136-145); TOTAL BILIRUBIN 0.3 mg/dL (0.0-1.0); UREA NITROGEN, BLOOD 13 mg/dL (7-18)
[2022-01-10] MEDS: BLOOD GLUCOSE MONITORING 1 DEV DEV FS SCH ×4 (06:42→20:50)
--- NOTE | 2022-01-10 07:20 | NUR ---
ENDORSED PATIENT TO CAROL ATKINS FOR CONTINUITY OF CARE. PATIENT IS STABLE.
[2022-01-10 08:00] VITALS: BP 155/47
--- NOTE | 2022-01-10 08:52 | NUR ---
DC PLANNING: THE PATIENT PRESENTED WITH C/O SUBSTERNAL CHEST PAIN THAT RADIATES TO BILATERAL SHOULDERS WITH SOB. HO HTN, DM AND HYPERLIPIDEMIA. EKG WIT NSR, K+ 6.1, TROPONINS 2253 AND 2143. CARDIOLOGY CONSULT WITH DR JAIMES COMPLETED, ORDERS FOR PATIENT TO GO TO [facility] FOR CARDIAC CATH. CLEMENT SPOKE WITH DAVID AT [facility] TO MAKE HER AWARE OF ORDER AND TO WORK ON AUTHORIZATION, ORDERS FAXED TO HER. ORDERS ALSO FAXED TO [facility], CLEMENT SPOKE WITH MARCOS AT [facility] TO MAKE HER AWARE. CM WILL FOLLOW. Addendum: 01/10/22 at 1612 by Lela Gautam CM DC PLANNING: DAVID AT [facility] REFERRED CM TO [facility] FOR MANAGEMENT OF TRANSFER. CLEMENT SPOKE WITH FAM AT [facility] ([phone]) WHO STATES THAT THE [facility] TRANSFER TEAM WILL MANAGE THIS AND THAT [facility] IS CONTRACTED. CLINICAL PACKET AND TRANSFER ORDER FAXED TO [facility] ([phone]), ASKED FAM TO HAVE THEM CALL THE NURSES STATION FOR ANY TRANSFER ARRANGEMENTS. CM WILL FOLLOW. Addendum: 01/11/22 at 0836 by Llea Gautam CM DC PLANNING: CLEMENT RECEIVED VM FROM MARCOS AT [facility], STATES THAT THEY ARE DECLINING PATIENT AFTER [facility] UNDERWRITER REVIEWED THE CASE, STATES THAT PATIENTS TROPONINS ARE NORMAL AND THAT HE DID NOT HAVE AN NSTEMI AND TO REFER HIM BACK TO THE [facility] UNDERWRITER. DR JAIMES MADE AWARE OF DECLINATION, CLEMENT WILL FOLLOW. Addendum: 01/11/22 at 1116 by Lela Gautam CM DC PLANNING: CLEMENT RE-FAXED CLINICAL PACKET AND SPOKE TO GILLIAN AT [facility], ASKED HER TO HAVE HER VA UNDERWRITER RE-EVALUATE. GILLIAN CALLED BACK AND STATED THAT THE PATIENT IS ACCEPTED, NOW WAITING FOR THE ACCEPTING MD DR MERAZ TO CALL THEM BACK. CLEMENT HAS SPOKEN WITH FAM AT [facility] SEVERAL TIMES REGARDING TRANSFER AND AUTH, STATES THAT HIS REVENUE INTEGRITY ANALYST IS REVIEWING THE CASE AND HIS TRANSFER TEAM IS WORKING ON AUTH. FAM WILL CALL CLEMENT WITH AUTH ONCE THIS IS COMPLETED. CLEMENT WILL FOLLOW. Addendum: 01/11/22 at 1225 by Lela Gautam CM DC PLANNING: VM LEFT BY FAM AT [facility] THAT THE PATIENT CAN'T GO TO [facility] IT ISN'T CONTRACTED. STATED THAT THE TRANSFER TEAM IS WORKING WITH 4 HOSPITALS FOR PLACEMENT. CLEMENT WILL FOLLOW. Addendum: 01/11/22 at 1641 by Lela Gautam CM DC PLANNING: CLEMENT SPOKE WITH NICOLE AT [facility] ([phone]), NUMBERS FOR DR MACIEL AND DR JAIMES GIVEN TO HER. PATIENT POTENTIALLY WILL GO TO [facility] WITH DR CUADRA FOLLOWING, [facility] WILL CALL [facility] WITH DETAILS ON ROOM AND NUMBER TO CALL RE[facility] TRANSPORT. NICOLE ASKS THAT ALL IMAGING INCLUDING ECHO BE PLACED ON CD TO GO WITH THE PATIENT. NICOLE IS WORKING UNTIL 11 TONIGHT AND IS AVAILABLE AT THE ABOVE PHONE NUMBER. CLEMENT SPOKE WITH THE PATIENTS DAUGHTER MICHAEL REGARDING THE POTENTIAL TRANSFER TO [facility] LATER TODAY, SHE WILL LET THE PATIENTS KNOW WELL. ABOVE ENDORSED TO THE PATIENTS NURSE HARMON, CLEMENT WILL FOLLOW.
[2022-01-10] MEDS: ATORVASTATIN 20 MG TAB PO SCH (09:38)
[2022-01-10] MEDS: carvediloL 6.25 MG TAB PO SCH ×2 (09:39→20:52)
[2022-01-10] MEDS: lisinopriL 10 MG TAB PO SCH ×2 (09:39→20:51)
[2022-01-10] MEDS: ENOXAPARIN 100 MG/ML SYR SUBQ SCH ×2 (09:59→20:58)
[2022-01-10] MEDS ORDERED: LISI10TA30 PO (11:12)
--- NOTE | 2022-01-10 11:33 | NUR ---
TALKED TO PATIENTS FAMILY AND UPDATED RE PATIENTS CONDITION. PATIENT DENIES CHEST PAIN AND 2 D ECHO IS IN PROGRESS.NO OTHER COMPLAINTS MADE.
[2022-01-10 12:00] VITALS: BP 155/80
[2022-01-10] MEDS: ECOTRIN 81 MG TABEC PO SCH (15:43)
[2022-01-10 16:00] VITALS: BP 153/79
[2022-01-10 20:00] VITALS: BP 152/80
[2022-01-11] VITALS: BP 162/73
[2022-01-11] MEDS: NACL 0.9% 1,000 ML IV SCH ×2 (01:35→06:27)
[2022-01-11 04:00] VITALS: BP 160/69
[2022-01-11 06:04] LABS: ALBUMIN 3.2 g/dL (3.4-5.0); ASPARTATE AMINOTRANSFERASE 24 U/L (15-37); CARBON DIOXIDE 26.6 mmol/L (21-32); CHLORIDE 106 mmol/L (98-107); CREATININE 0.9 mg/dL (0.6-1.3); GLUCOSE 100 mg/dL (74-106); MAGNESIUM 2.2 mg/dL (1.8-2.4); POTASSIUM 3.6 mmol/L (3.5-5.1); SODIUM SERUM 141 mmol/L (136-145); TOTAL BILIRUBIN 0.4 mg/dL (0.0-1.0); UREA NITROGEN, BLOOD 12 mg/dL (7-18)
[2022-01-11] MEDS: BLOOD GLUCOSE MONITORING 1 DEV DEV FS SCH ×4 (06:17→21:00)
--- NOTE | 2022-01-11 07:15 | NUR ---
RECEIVED REPORT FROM HAULPAK DRIVER NURSE FOR CONTINUITY OF CARE. PT IN BED RESTING AT THIS TIME. RESPIRATIONS ARE EVEN AND UNLABORED ON ROOM AIR. NO SIGNS OF DISTRESS NOTED. PT IS ALERT AND ORIENTED X4, COOPERATIVE, AND ABLE TO VERBALIZE NEEDS TO STAFF, PUERTO RICAN SPEAKING ONLY. PT IS ON CARDIAC MONITORING, SR AT THIS TIME. ABD IS NONTENDER, NONDISTENDED WITH BOWEL SOUNDS PRESENT. PT IS CONTINENT OF BOWEL AND BLADDER. PT HAS IV TO L AC, 20G. SKIN IS WARM, DRY, AND INTACT. PER HAULPAK DRIVER NURSE, PT IS PENDING TRANSFER TO HIGHER LEVEL OF CARE FOR CARDIAC CATHETERIZATION, WILL FOLLOW UP WITH [facility]. CALL LIGHT WITHIN REACH. ALL SAFETY MEASURES IN PLACE. WILL CONTINUE TO MONITOR.
[2022-01-11 08:00] VITALS: BP 192/92
[2022-01-11] MEDS: ECOTRIN 81 MG TABEC PO SCH (08:37)
[2022-01-11] MEDS: ATORVASTATIN 20 MG TAB PO SCH (08:37)
[2022-01-11] MEDS: carvediloL 6.25 MG TAB PO SCH ×2 (08:37→22:41)
[2022-01-11] MEDS: lisinopriL 10 MG TAB PO SCH (08:38)
[2022-01-11] MEDS: ENOXAPARIN 100 MG/ML SYR SUBQ SCH ×2 (08:43→22:32)
--- NOTE | 2022-01-11 08:45 | NUR ---
ADMINISTERED ALL SCHEDULED MEDICATIONS. EDUCATED PT ON MEDS ADMINISTERED. ANSWERED ALL QUESTIONS. PT VERBALIZED UNDERSTANDING. WILL CONTINUE TO MONITOR.
--- NOTE | 2022-01-11 10:26 | NUR ---
CALLED PT DAUGHTER TO INFORM HER REGARDING PT TRANSFER TO HIGHER LEVEL OF CARE, WELL PT ACCEPTANCE TO [facility]. PT DAUGHTER STATED SHE WAS ALREADY AWARE, HOWEVER WOULD LIKE TO BE NOTIFIED WHEN PT IS PICKED UP. WILL FOLLOW UP.
--- NOTE | 2022-01-11 11:11 | NUR ---
PT BLOOD GLUCOSE WAS 104. NO INSULIN COVERAGE NEEDED PER SLIDING SCALE. WILL CONTINUE TO MONITOR.
[2022-01-11 12:00] VITALS: BP 158/76
--- NOTE | 2022-01-11 14:20 | NUR ---
DID ROUNDS ON PT. PT IN BED, FAMILY AT BEDSIDE. NO COMPLAINTS OF PAIN OR DISCOMFORT AT THIS TIME. RESPIRATIONS ARE EVEN AND UNLABORED. WILL CONTINUE TO MONITOR.
--- NOTE | 2022-01-11 15:00 | NUR ---
DC PLANNING PATIENT IS AN 81-YEAR-OLD MALE ADMITTED IN [facility]/ED ON 01/10/2022 DUE TO COMPLAINTS OF CHEST PAIN AND SHORTNESS OF BREATH. PATIENT HAS HX OF DIABETES MELLITUS, HYPERTENSION AND HYPERLIPIDEMIA. (PATIENT IS MONEGASQUE SPEAKING ONLY). RAKESH MET WITH PATIENT AND HIS CRISTI ARELLANO AT BEDSIDE TO DISCUSS AND GATHER HIS COLLATERAL INFORMATION. PATIENT REPORTED LIVING AT HOME WITH HIS AND DAUGHTER MICHAEL JIMÉNEZ IN [facility]. PATIENT REPORTED THAT HIS DAUGHTER MICHAEL IS HIS EMERGENCY CONTACT. PATIENT DISCLOSED DURING THE VISIT WITH THESE VIDEO CAMERA OPERATOR THAT HE DID NOT HAVE ADVANCE DIRECTIVES AND WANTED THE INF. PACKET PROVIDED BY RAKESH. PATIENT REPORTED NOT HAVING ANY ISSUES GETTING OR TAKING HIS MEDICATIONS FROM THE PHARMACY [facility] IN [facility]. PER PATIENT THE PHARMACY SEND VIA MAIL ALL HIS MEDICATIONS AND HAS NO ISSUES GETTING THEM OR TAKING THEM. PATIENT STATED HAVING A CANE AND AND A SHOWER CHAIR HIS DME AT HOME AND BEEN ACTIVE AND INDEPENDENT MUCH HE CAN. PATIENT REPORTED GOING TO HIS PCP DR. NADINE VELAZQUEZ IN [facility]. LAST VISIT WAS IN SEPTEMBER AND AGREED TO MAKE HIS OWN APPOINTMENT WHEN HE IS READY FOR DISCHARGE. PATIENT REPORTED TO RAKESH THAT HE WILL BE ASSISTED BY HIS OR DAUGHTER FOR TRANSPORTATION BACK TO HIS HOME WHEN HE IS READY TO DC THE HOSPITAL. PER PATIENT HE HAS NOT GOT OTHER SERVICES LIKE SNF OR H[facility] IN THE PAST AND PLANS TO GO HOME AT [place]. SW WILL FOLLOW UP NEEDED.
[2022-01-11 16:00] VITALS: BP 190/70
--- NOTE | 2022-01-11 16:29 | NUR ---
PT BLOOD GLUCOSE WAS 100. NO INSULIN COVERAGE NEEDED PER SLIDING SCALE. WILL CONTINUE TO MONITOR.
--- NOTE | 2022-01-11 16:55 | NUR ---
PT BP WAS 191/70. RN ADMINISTERED IV HYDRALAZINE ORDERED. WILL CONTINUE TO MONITOR.
--- NOTE | 2022-01-11 18:07 | NUR ---
RE-ASSESSED PT BP. 154/76. WILL CONTINUE TO MONITOR.
[2022-01-11 18:38] VITALS: BP 154/76
--- NOTE | 2022-01-11 19:48 | NUR ---
ENDORSED PT WELL DISCHARGE TO HIGHER LEVEL OF CARE, TO SUPERVISING FIRE MARSHAL NURSE FOR CONTINUITY OF CARE. ALL NEEDS MET THROUGHOUT SHIFT. WENT OVER DISCHARGE PAPERWORK WITH PT. ANSWERED ALL QUESTIONS. PT SIGNED ALL PAPERWORK. PT IS STABLE.
--- NOTE | 2022-01-11 19:49 | NUR ---
RECEIVED BEDSIDE REPORT FOR CONTINUITY OF PATIENT CARE.
[2022-01-11] MEDS ORDERED: lisinopriL 10 MG TAB PO SCH (21:00)
--- NOTE | 2022-01-11 22:00 | NUR ---
PT RESPONSIVE TO STIMULI, AWAKE & ALERT. PATIENT IS TO BE TRANSFERRED TO [facility], WAITING FOR TRANSPORTATION.
--- NOTE | 2022-01-12 04:00 | NUR ---
PT TRANSPORTED BY [facility] BY [facility]. AWAKE, ALERT AND RESPONSIVE WELL. PATIENT TRANSFERRED TO [facility] ON STABLE CONDITION. TRANSPORTED BY TWO [facility] STAFF.
== END 2022-01-11 23:40 | disposition short-term general hospital (02) | DRG 282 ==
LOC: MED 21:50 → MTU 23:36 → OBSVTOIN 01-10 09:06
PROVIDERS: ADMIT Hospitalist; ATTEND Hospitalist
DX: I21.4 Non-ST elevation (NSTEMI) myocardial infarction (principal); I16.0 Hypertensive urgency; Z20.822 Contact with and (suspected) exposure to COVID-19; I10 Essential (primary) hypertension; E11.9 Type 2 diabetes mellitus without complications; E78.5 Hyperlipidemia, unspecified; K21.9 Gastro-esophageal reflux disease without esophagitis; I20.9 Angina pectoris, unspecified; Z83.3 Family history of diabetes mellitus; Z82.49 Family history of ischemic heart disease and other diseases of the circulatory system; Z79.899 Other long term (current) drug therapy
CPT/HCPCS: 96372; 96374; 96375; 99285; G0378; 36415; 71045; 80053; 82948; 83735; 83880; 84132; 84484; 85025; 85379; 87081; 93005; J0360; J1644; J1650; J1815; J2270; J2405

== ENCOUNTER 2023-07-28 15:06 | Emergency (ER) | payer OTHER ==
[~2023-07-28] VITALS: Ht 170.2 cm; Wt 91.3 kg
[~2023-07-28 15:06] MED LIST changes: +LISI10TA30 PO; +SIMV-372 PO; -SIMV20TA1 PO
[2023-07-28 15:17] VITALS: BP 155/78; PULSE 93; RESP 20; TEMP 97.7; O2SAT 97
[2023-07-28] MEDS ORDERED: ONDANSETRON 4 MG/2 ML VIAL IVP ONE (15:25)
[2023-07-28 16:23] LABS: APPEARANCE,URINE CLEAR (CLEAR); BILIRUBIN,URINE NEGATIVE (NEGATIVE); BLOOD, URINE NEGATIVE (NEGATIVE); COLOR,URINE YELLOW (YELLOW); LEUKOCYTE ESTERASE ,URINE NEGATIVE (NEGATIVE); NITRITE, URINE NEGATIVE (NEGATIVE); PH,URINE 6.5 (5.0-9.0); PROTEIN,URINE NEGATIVE (NEGATIVE); UGLUCOSE NEGATIVE (NEGATIVE); UROBILINOGEN,URINE 0.2 EU/dL (0.2 - 1)
[2023-07-28 16:24] LABS: BASOPHILS % (AUTO) 0.4 % (0.0-2.0); EOSINOPHILS % (AUTO) 0.2 % (0.0-4.0); HEMATOCRIT 41.6 % (36-52); HEMOGLOBIN 13.9 g/dL (12.0-18.0); LYMPHOCYTES # (AUTO) 0.5 K/uL (2.0-11.5); LYMPHOCYTES % (AUTO) 7.6 % (20.5-51.1); MEAN CORPUSCULAR HEMOGLOBIN 29 pg (27-31); MEAN CORPUSCULAR HGB CONC 33 g/dL (33-37); MEAN CORPUSCULAR VOLUME 86.1 fL (80-94); MONOCYTES # (AUTO) 0.5 K/uL (0.8-1.0); MONOCYTES % (AUTO) 6.8 % (1.7-9.3); NEUTROPHILS # (AUTO) 5.7 K/uL (1.8-7.7); PLATELET COUNT (AUTO) 131 K/uL (140-450); RED BLOOD CELL COUNT(AUTO) 4.84 MIL/uL (4.20-6.10); RED CELL DISTRIBUTION WIDTH 15.1 % (11.6-13.7); WHITE BLOOD COUNT (AUTO) 6.7 K/uL (4.8-10.8)
[2023-07-28 16:41] LABS: ALANINE AMINOTRANSFERASE 26 U/L (12-78); ALKALINE PHOSPHATASE 95 U/L (50-136); ANION GAP 13.5 (8-16); ASPARTATE AMINOTRANSFERASE 28 U/L (15-37); CALCIUM 8.9 mg/dL (8.5-10.1); CARBON DIOXIDE 26.6 mmol/L (21-32); CHLORIDE 104 mmol/L (98-107); CREATININE 1.2 mg/dL (0.6-1.3); GLUCOSE 133 mg/dL (74-106); LIPASE 56 U/L (16-77); POTASSIUM 4.1 mmol/L (3.5-5.1); SODIUM SERUM 140 mmol/L (136-145); TOTAL BILIRUBIN 0.4 mg/dL (0.0-1.0); TOTAL PROTEIN, SERUM 7.8 g/dL (6.4-8.2); UREA NITROGEN, BLOOD 21 mg/dL (7-18)
[2023-07-28] MEDS ORDERED: MORPHINE SULFATE 4 MG/ML SYR IVP ONE (17:10)
[2023-07-28] MEDS ORDERED: ONDANSETRON 4 MG/2 ML VIAL ONE (17:17)
[2023-07-28 17:37] VITALS: O2SAT 97
[2023-07-28] MEDS ORDERED: ESMOLOL 100 MG/10 ML VIAL IV STA (19:40)
[2023-07-28] MEDS ORDERED: LABETALOL 250 MG in DEXTROSE 5% 200 ML IV SCH (19:40)
[2023-07-28] MEDS ORDERED: LABETALOL 20 MG/4 ML VIAL IVP ONE ×3 (19:52→20:17)
[2023-07-28 20:35] VITALS: O2SAT 94
[2023-07-28 21:25] VITALS: BP 151/91; PULSE 86; RESP 15; TEMP 97.7; O2SAT 94
== END 2023-07-28 23:00 | disposition short-term general hospital (02) ==
LOC: MED 15:06
DX: I71.02 Dissection of abdominal aorta (principal); I11.9 Hypertensive heart disease without heart failure; K21.9 Gastro-esophageal reflux disease without esophagitis; E11.9 Type 2 diabetes mellitus without complications; Z79.4 Long term (current) use of insulin; Z79.899 Other long term (current) drug therapy
CPT/HCPCS: 36415; 71045; 74174; 80053; 81003; 83690; 84484; 85025; 96365; 96366; 96375; 99291; 99292; J2270; J2405; J3490; J7060; Q9967; 93005